=== PATIENT | male | born 1985 | race Hispanic/Latino ===

== ENCOUNTER 2018-06-24 11:11 | Outpatient (CLI) | payer OTHER ==
--- NOTE | 2018-06-24 12:51 | RAD ---
TWO VIEWS LEFT HIP: INDICATION: Left hip pain. FINDINGS: There is no fracture or dislocation. No significant arthropathy. IMPRESSION: No acute osseous abnormality of the left hip. POS: [facility]
== END 2018-06-24 11:12 | disposition home or self-care (01) ==
LOC: BICRAD 11:11
PROVIDERS: ATTEND Family Medicine
DX: M25.552 Pain in left hip (principal)